=== PATIENT | female | born 1955 | race Caucasian/White ===

== ENCOUNTER 2017-01-13 12:00 | Outpatient (CLI) ==
[2017-01-13 14:03] LABS: BILIRUBIN,URINE Negative (NEGATIVE); HEMATOCRIT 44.5 % (37.0-47.0); HEMOGLOBIN 15.4 g/dl (12.0-16.0); KETONES,URINE Negative (NEGATIVE); LEUKOCYTE ESTERASE ,URINE Negative (NEGATIVE); MEAN CORPUSCULAR HEMOGLOBIN 32.5 pg (27.0-31.0); MEAN CORPUSCULAR HGB CONC 34.6 (31.8-35.4); MEAN CORPUSCULAR VOLUME 93.9 fl (81.0-99.0); NITRITE,URINE Negative (NEGATIVE); PROTEIN,URINE Negative (NEGATIVE); RED BLOOD COUNT 4.74 10^6/ul (4.20-5.40); URINE, BLOOD Negative (NEGATIVE); WHITE BLOOD COUNT 4.54 K/ul (4.6-10.2)
[2017-01-13 14:05] LABS: ADD URINE MICROSCOPIC NO
[2017-01-13 14:32] LABS: ALBUMIN 3.8 g/dL (3.4-5.0); ALBUMIN/GLOBULIN RATIO 1.19; ANION GAP 13.5; BILIRUBIN,TOTAL 1.26 mg/dL (0.00-1.20); BUN/CREATININE RATIO 17.44; CALCIUM 9.8 mg/dL (8.2-10.2); CHOL/HDL RATIO 4.4 (4.5-5.5); CREATININE 0.86 mg/dL (0.60-1.30); POTASSIUM 3.5 mmol/L (3.5-5.10)
== END 2017-01-13 12:01 | disposition home or self-care (01) ==
LOC: LAB 12:00
PROVIDERS: ATTEND General Practice
DX: E78.5 Hyperlipidemia, unspecified (principal); I10 Essential (primary) hypertension; Z79.899 Other long term (current) drug therapy
CPT/HCPCS: 36415; 80053; 80061; 81001; 85027

== ENCOUNTER 2017-01-22 15:08 | Outpatient (CLI) ==
[2017-01-22 16:39] LABS: OCCULT BLOOD INTERNAL QC 1 INTERNAL QC VALID; OCCULT BLOOD SAMPLE 1 NEGATIVE (NEGATIVE)
[2017-01-22 16:55] LABS: OCCULT BLOOD INTERNAL QC 2 INTERNAL QC VALID; OCCULT BLOOD INTERNAL QC 3 INTERNAL QC VALID; OCCULT BLOOD SAMPLE 2 NO SPECIMEN RECEIVED (NEGATIVE); OCCULT BLOOD SAMPLE 3 NO SPECIMEN RECEIVED (NEGATIVE)
== END 2017-01-22 15:09 | disposition home or self-care (01) ==
LOC: LAB 15:08
PROVIDERS: ATTEND General Practice
DX: Z12.11 Encounter for screening for malignant neoplasm of colon (principal)
CPT/HCPCS: 82272

== ENCOUNTER 2017-05-26 08:53 | Outpatient (CLI) ==
[2017-05-26 15:07] LABS: BASOPHILS # (AUTO) 0.1 K/uL (0-0.2); BASOPHILS % (AUTO) 1.3 % (0.0-3.0); EOSINOPHILS # (AUTO) 0.1 K/ul (0.0-0.7); EOSINOPHILS % (AUTO) 2.7 % (0.0-7.0); HEMOGLOBIN 14.7 g/dl (12.0-16.0); IMMATURE GRANULOCYTE % (AUTO) 0.2 % (0.0-5.0); LYMPHOCYTES # (AUTO) 1.6 K/uL (0.60-3.4); LYMPHOCYTES % (AUTO) 34.8 (10.0-50.0); MEAN CORPUSCULAR HEMOGLOBIN 32.8 pg (27.0-31.0); MEAN CORPUSCULAR HGB CONC 34.2 (31.8-35.4); MONOCYTES # (AUTO) 0.4 K/uL (0.4-2.0); MONOCYTES % (AUTO) 9.3 (0-10); NEUTROPHILS # (AUTO) 2.3 K/ul (2.0-6.9); NEUTROPHILS % (AUTO) 51.7; PLATELET COUNT 182 10^3/uL (140-440); RED BLOOD COUNT 4.48 10^6/ul (4.20-5.40); WHITE BLOOD COUNT 4.51 K/ul (4.6-10.2)
[2017-05-26 15:09] LABS: ALBUMIN/GLOBULIN RATIO 1.25; ANION GAP 14.4; BILIRUBIN,TOTAL 1.23 mg/dL (0.00-1.20); BUN/CREATININE RATIO 16.3; CALCIUM 10.4 mg/dL (8.2-10.2); CHOL/HDL RATIO 4.7 (4.5-5.5); CREATININE 0.92 mg/dL (0.60-1.30); POTASSIUM 3.4 mmol/L (3.5-5.10); TOTAL PROTEIN 7.2 g/dL (5.8-8.1)
[2017-05-26 15:58] LABS: BILIRUBIN,URINE Negative (NEGATIVE); KETONES,URINE Negative (NEGATIVE); LEUKOCYTE ESTERASE ,URINE Trace (NEGATIVE); NITRITE,URINE Negative (NEGATIVE); PROTEIN,URINE Negative (NEGATIVE); URINE, BLOOD Negative (NEGATIVE)
[2017-05-26 16:03] LABS: ADD URINE MICROSCOPIC YES
[2017-05-26 16:11] LABS: BACTERIA,URINE 1+ (NOT PRESENT)
== END 2017-05-26 08:54 | disposition home or self-care (01) ==
LOC: LAB 08:53
PROVIDERS: ATTEND General Practice
DX: E78.5 Hyperlipidemia, unspecified (principal); I10 Essential (primary) hypertension; Z79.899 Other long term (current) drug therapy; Z12.11 Encounter for screening for malignant neoplasm of colon
CPT/HCPCS: 36415; 80053; 80061; 81001; 85025; 87086

== ENCOUNTER 2018-01-12 10:05 | Outpatient (CLI) | END 2018-01-12 10:06 | disposition home or self-care (01) | LOC: FCC-LAB 10:05 | PROVIDERS: ATTEND General Practice | DX: E78.5 Hyperlipidemia, unspecified (principal); I10 Essential (primary) hypertension; Z12.12 Encounter for screening for malignant neoplasm of rectum; Z79.899 Other long term (current) drug therapy | CPT/HCPCS: 36415; 80053; 80061; 81001; 85025 ==

== ENCOUNTER 2018-05-17 11:20 | Outpatient (CLI) | END 2018-05-17 11:21 | disposition home or self-care (01) | LOC: FCC-LAB 11:20 | PROVIDERS: ATTEND General Practice | DX: E78.5 Hyperlipidemia, unspecified (principal); I10 Essential (primary) hypertension; Z79.899 Other long term (current) drug therapy | CPT/HCPCS: 36415; 80053; 80061; 81001; 85025 ==

== ENCOUNTER 2018-05-24 08:38 | Outpatient (CLI) ==
--- NOTE | 2018-05-24 09:40 | US ---
EXAM: Right axilla ultrasound limited Doppler HISTORY: Localize right axillary swelling. COMPARISON: Mammogram 09/21/2017 FINDINGS: Sonographic evaluation demonstrates a peripherally hypoechoic and centrally hyperechoic lym ph node in the right axilla measuring approximately 3.0 x 1.3 x 2.0 cm. There is no significant abno rmal thickening. IMPRESSION: Mildly enlarged right axillary lymph node with normal morphological appearance which is likely reacti ve. Recommendation: Follow-up right axilla ultrasound with mammogram in 6 months. BIRADS category III: Probable benign findings.
== END 2018-05-24 08:39 | disposition home or self-care (01) ==
LOC: RAD 08:38
PROVIDERS: ATTEND General Practice
DX: R22.31 Localized swelling, mass and lump, right upper limb (principal)
CPT/HCPCS: 76882

== ENCOUNTER 2018-09-20 10:16 | Outpatient (CLI) | END 2018-09-20 10:17 | disposition home or self-care (01) | LOC: RHC-LAB 10:16 | PROVIDERS: ATTEND General Practice | DX: E78.5 Hyperlipidemia, unspecified (principal); Z79.899 Other long term (current) drug therapy; I10 Essential (primary) hypertension | CPT/HCPCS: 36415; 80053; 80061; 81001; 85025 ==

== ENCOUNTER 2018-10-05 10:01 | Outpatient (CLI) ==
--- NOTE | 2018-10-05 13:07 | CT ---
EXAM: CT of the chest with contrast History: Enlarged lymph nodes. Comparison: Chest radiograph 07/26/2014, right breast ultrasound 10/01/2018 Technique: Multiplanar CT images through the thorax were obtained following administration of IV con trast. Findings: Heart size is normal. No pericardial effusion. Great vessels are unremarkable. There ar e some coronary calcifications. No pathologically enlarged thoracic lymph nodes. No consolidation. No pleural fluid and no pneumothorax. No suspicious lung masses or lung nodules. Within the visualized upper abdomen, the liver is fatty. 1.5 cm enhancing lesion within the left hep atic lobe. 1 cm simple left renal cyst. No acute osseous abnormalities. Impression: 1. No acute intrathoracic process. 2. No thoracic lymphadenopathy. 3. Coronary artery disease. 4. Hepatic steatosis. 5. Small enhancing lesion within the left hepatic lobe of the liver is indeterminate but probably rep resents a benign lesion such as hemangioma or focal nodular hyperplasia versus adenoma.
== END 2018-10-05 10:02 | disposition home or self-care (01) ==
LOC: RAD 10:01
PROVIDERS: ATTEND General Practice
DX: R59.0 Localized enlarged lymph nodes (principal); N63.31 Unspecified lump in axillary tail of the right breast

== ENCOUNTER 2019-01-17 08:02 | Outpatient (CLI) | END 2019-01-17 08:03 | disposition home or self-care (01) | LOC: RHC-LAB 08:02 | PROVIDERS: ATTEND General Practice | DX: E78.5 Hyperlipidemia, unspecified (principal); I10 Essential (primary) hypertension; Z79.899 Other long term (current) drug therapy | CPT/HCPCS: 36415; 80053; 80061; 81001; 85025 ==

== ENCOUNTER 2019-05-17 08:06 | Outpatient (CLI) | END 2019-05-17 08:07 | disposition home or self-care (01) | LOC: RHC-LAB 08:06 | PROVIDERS: ATTEND General Practice | DX: E78.5 Hyperlipidemia, unspecified (principal); I10 Essential (primary) hypertension; Z79.899 Other long term (current) drug therapy | CPT/HCPCS: 36415; 80053; 80061; 81001; 85025; 87086 ==